=== PATIENT | male | born 1960 | race Caucasian/White ===

== ENCOUNTER → 2023-02-17 11:54 | Outpatient (CLI) | payer OTHER, SELFPAY ==
--- NOTE | 2023-02-17 | ECG_ITS ---
APPROVED REPORT Exam: Resting ECG HR:50 bpm ECG Measurements Heart Rate 50 AXES MD 203 P 30 QRSd 105 QRS -26 QT 425 T 32 QTc 399 Conclusion SINUS BRADYCARDIA BORDERLINE LEFT AXIS DEVIATION [QRS AXIS < -20] OTHERWISE A NORMAL EKG Electronically signed by : Judah Jacobson MD 02/17/2023 14:41:16
== END ==
PROVIDERS: PCP Internal Medicine; Visit Provider Internal Medicine
DX: I10 Essential (primary) hypertension (principal); Z82.49 Family history of ischemic heart disease and other diseases of the circulatory system
CPT/HCPCS: 93005

== ENCOUNTER 2023-05-21 09:10 | Outpatient (CLI) | payer OTHER, SELFPAY ==
--- NOTE | 2023-05-21 | CA_ITS ---
APPROVED REPORT Exam: Exercise Treadmill Technologist: Louise Jimenez Stress Nurse: YONIS RUBIN Ht: 5 ft 10 in Wt: 220 lbs BSA: 2.17 m2 HR: 64 bpm BP: 159/84 mmHg Rhythm: NSR, PVC Medical History Medications: Lisonopril,,,,, Cardiac Risk Factors: FHX of CAD Stress Test Details Test: Tito HR Resting HR: 77 bpm Max Heart Rate (APMHR): 156 bpm Max HR Achieved: 167 bpm Target HR (85% APMHR): 133 bpm % of APMHR: 107 Recovery HR: 136 bpm HR response to stress: Normal HR response to stress BP Resting BP: 150.0/91 mmHg Max BP: 218/84 mmHg Recovery BP: 172.0/82.0 mmHg BP response to stress: Abnormal hypertensive response to stress. ECG Resting ECG: YONIS RUBIN Stress EC mm upsloping ST depression Arrhythmia: Frequent PVCs with with bigeminy pattern, ventricular couplets Recovery ECG: Return to baseline within 3 minutes of recovery Recovery Arrhythmia: Occasional PVCs Clinical Exercise duration: 09:36 min Highest Stage Achieved: Exercise capacity: 10.1 METs Overall Exercise Capacity for Age: Average Stress ECG Conclusion The patient was able to exercise for a total of 9 minutes, 36 seconds. He achieved a total of 10.1 METS. He has average exercise capacity compared to age and sex matched peers. He has normal HR, but exaggerated hypertensive, BP response to exercise. Ectopy: Periods of ventricular bigeminy, occasional vent couplet. ST changes: [address] depression Conclusion: Average exercise capacity. Frequent ectopy, including ventricular bigeminy and ventricular couplets at peak stress. ST changes suggestive of possible ischemia. GXT only (no imaging). Further evaluation with stress testing, including imaging, is recommended. Aggressive BP control is recommended. Test Summary REST . . . . . . . Sitting REST . . . . . . . Standing REST . . . . . . . Standing REST 07:45 0.0 0.0 77 . 150/ 91 . . Stage 1 01:00 10.0 1.7 93 . . . . Stage 1 02:00 10.0 1.7 94 . . . . Stage 1 03:00 10.0 1.7 101 . 188/ 90 . . Stage 2 01:00 12.0 2.5 119 . . . . Stage 2 02:00 12.0 2.5 132 . . . . Stage 2 03:00 12.0 2.5 127 . 210/ 84 . . Stage 3 01:00 14.0 3.4 133 . . . . Stage 3 02:00 14.0 3.4 140 . . . . Stage 3 03:00 14.0 3.4 150 . 218/ 84 . . Stage 4 00:36 16.0 4.2 156 . . . Stop exercise at 09:36 RECOVERY 01:00 0.0 0.0 140 . . . . RECOVERY 02:00 0.0 0.0 114 . . . . RECOVERY 03:00 0.0 0.0 105 . 172/ 82 . . RECOVERY 04:00 0.0 0.0 103 . 168/ 85 . . RECOVERY 05:00 0.0 0.0 106 . 169/ 89 . . RECOVERY 06:00 0.0 0.0 96 . 169/ 89 . . RECOVERY 07:00 0.0 0.0 99 . 169/ 89 . . RECOVERY 07:46 0.0 0.0 102 . 169/ 89 . . Electronically signed by : Aspen Roth MD 05/22/2023 23:02:22
== END 2023-05-21 23:59 ==
PROVIDERS: PCP Internal Medicine; Visit Provider Internal Medicine
DX: R06.09 Other forms of dyspnea (principal)
CPT/HCPCS: 93017; 93018